=== PATIENT | male | born 1995 | race Caucasian/White ===

== ENCOUNTER 2023-07-12 13:31 | Emergency (ER) | payer SELFPAY ==
[~2023-07-12] VITALS: Ht 172.7 cm; Wt 73.0 kg
[2023-07-12 13:34] VITALS: O2SAT 98
[2023-07-12] MEDS ORDERED: LORAZEPAM 2MG/ML CPJ IM ONE (14:15)
[2023-07-12 15:13] VITALS: BP 144/78; PULSE 105; RESP 24; TEMP 98
[2023-07-12] MEDS ORDERED: NALO4SPR BOTHNSTRLS (15:21)
== END 2023-07-12 15:55 | disposition home or self-care (01) ==
LOC: ER 14:48
DX: T40.2X1A Poisoning by other opioids, accidental (unintentional), initial encounter (principal); X58.XXXA Exposure to other specified factors, initial encounter
CPT/HCPCS: 99283; 93005; 96372; J2060

== ENCOUNTER 2023-07-28 07:29 | Inpatient (IN) | payer SELFPAY ==
[2023-07-28] VITALS (20 sets, daily range): BP systolic 119–154; BP diastolic 78–105; PULSE 45–101; RESP 14–19; TEMP 97–98
[~2023-07-28] VITALS: Ht 167.6 cm; Wt 72.6 kg
[~2023-07-28 07:29] MED LIST: NALO4SPR BOTHNSTRLS
[2023-07-28] MEDS ORDERED: NALOXONE HCL 0.4 MG/ML 1ML VIAL IV ONE (08:15)
[2023-07-28] MEDS ORDERED: NALOXONE HCL 1 MG/ML 2ML VIAL IV ONE (08:30)
[2023-07-28] MEDS ORDERED: KETAMINE HCL 50 MG/ML 10ML IV ONE (08:45)
[2023-07-28] MEDS ORDERED: ROCURONIUM BROMIDE 10MG/ML VIAL 5ML IV ONE (08:45)
[2023-07-28] MEDS ORDERED: DEXMEDETOMIDINE 400 MCG/100 ML 100 ML IV STA (08:55)
[2023-07-28] MEDS ORDERED: SUCCINYLCHOLINE CHLORIDE 200MG/10ML IV ONE (09:00)
[2023-07-28] MEDS ORDERED: DEXMEDETOMIDINE 400 MCG/100 ML 100 ML IV ONE (09:00)
[2023-07-28 09:09] LABS: BASOPHILS % 0.2 % (0.0-2.0); EOSINOPHILS % 0.5 % (0.0-5.0); HEMATOCRIT. 38.9 % (42.0-52.0); HEMOGLOBIN. 13.4 g/dL (14.0-18.0); LYMPHOCYTES % 27.9 % (20.0-50.0); MEAN CORPUSCULAR HEMOGLOBIN 28.7 pg (28.0-32.0); MEAN CORPUSCULAR HGB CONC 34.4 g/dL (31.0-37.0); MEAN CORPUSCULAR VOLUME 83.6 fL (80.0-94.0); MONOCYTES % 7.9 % (2.0-8.0); NEUTROPHILS % 63.5 % (40.0-76.0); PLATELET 277 x1000/uL (130-400); RED BLOOD CELL COUNT 4.65 mill/uL (4.7-6.1); RED CELL DISTRIBUTION WIDTH 14.1 % (11.6-14.6); WHITE BLOOD COUNT 6.7 x1000/uL (4.5-11.0)
[2023-07-28 09:46] LABS: BG BASE EXCESS 2.5 mmol/L (-2.0-2.0); BG CARBOXYHEMOGLOBIN 0.5 % (0.5-1.5); BG DEOXYHEMOGLOBIN 0.3 % (0.0-5.0); BG HCO3 ACT 28.1 mmol/L (22.0-26.0); BG METHEMOGLOBIN 0.4 % (0.0-1.5); BG OXYGEN SATURATION 99.7 % (92.0-98.5); BG OXYHEMOGLOBIN 98.8 % (94.0-97.0); BG PCO2 46.9 mmHg (35.0-45.0); BG PH 7.395 (7.350-7.450); BG PO2 > 602.7 mmHg (75.0-100.0); BG SAMPLE SITE ALINE; BG TOTAL HEMOGLOBIN 14.1 g/dL (12.0-18.0); BG VENT MODE VENT - AC
[2023-07-28 09:56] LABS: CHLORIDE 97 mEq/L (98-107); INDEX HEMOLYSI 1 (1-3); INDEX ICTERIC 1 (1-4); INDEX LIPEMIC 1 (1-3); POTASSIUM 3.5 mEq/L (3.5-5.1); SODIUM 133 mEq/L (136-145)
[2023-07-28 10:04] LABS: ACETAMINOPHEN <2 ug/mL ug/mL (10-30); ALANINE AMINOTRANSFERASE 63 IU/L (13-61); ALBUMIN 3.7 g/dL (3.4-5.0); ASPARTATE AMINOTRANSFERASE 50 IU/L (15-37); BILIRUBIN TOTAL 0.5 mg/dL (0.1-1.0); CALCIUM 9.1 mg/dL (8.5-10.1); CARBON DIOXIDE 25 mEq/L (21-32); CREATININE 0.8 mg/dL (0.6-1.3); ETHANOL BLOOD < 10 mg/dL (-10); GLUCOSE 134 mg/dL (70-105); PROTEIN TOTAL 7.4 g/dL (6.0-8.3); UREA NITROGEN BLOOD 15 mg/dL (7-21)
[2023-07-28 10:32] LABS: *AMPHETAMINES SCREEN URINE PRESUMTIVE POSITIVE (NEGATIVE); *BARBITURATES SCREEN URINE NEGATIVE (NEGATIVE); *BENZODIAZEPINES SCREEN URINE NEGATIVE (NEGATIVE); *COCAINE SCREEN URINE NEGATIVE (NEGATIVE); CANNABINOID URINE SCREEN PRESUMTIVE POSITIVE (NEGATIVE); ECSTASY MDMA SCREEN URINE CONF.TEST INDICATED (NEGATIVE); METHADONE URINE SCREEN NEGATIVE (NEGATIVE); OPIATES URINE SCREEN NEGATIVE (NEGATIVE); PHENCYCLIDINE URINE SCREEN NEGATIVE (NEGATIVE)
[2023-07-28] MEDS ORDERED: HYDRALAZINE 10 MG in SODIUM CHLORIDE 0.9% 49.5 ML IV PRN (11:30)
[2023-07-28] MEDS: DEXT 5%/0.9% NACL 1,000 ML IV SCH (11:30)
[2023-07-28] MEDS ORDERED: PIPERACILLIN/TAZ 3.375G PREMIX 50 ML IV NR (12:00)
[2023-07-28 12:25] LABS: PHOSPHORUS 2.7 mg/dL (2.5-4.9)
[2023-07-28] MEDS ORDERED: IPRATROPIUM/ALBUTEROL 0.5-3(2.5)MG/3ML NEB HHN PRN (12:30)
[2023-07-28] MEDS ORDERED: PROPOFOL 10MG/ML 100ML 100 ML IV PRN (12:30)
[2023-07-28] MEDS ORDERED: DEXTROSE 50% WATER 50ML SYRINGE IV PRN (12:45)
[2023-07-28] MEDS ORDERED: FOLIC ACID 1 MG in SODIUM CHLORIDE 0.9% 500 ML IV NR (13:00)
[2023-07-28] MEDS: BLOOD SUGAR DIAGNOSTIC STRIP TEST SCH ×3 (13:00→20:24)
[2023-07-28] MEDS ORDERED: VANCOMYCIN 1.5GM/250ML IVPB 250 ML IV NR (13:00)
[2023-07-28] MEDS ORDERED: THIAMINE HCL 200 MG in SODIUM CHLORIDE 0.9% 98 ML IV SCH (14:00)
[2023-07-28] MEDS ORDERED: PIPERACILLIN/TAZOBACTAM 3.375G in DEXT 5% WATER 50ML IV NR (15:00)
[2023-07-28] MEDS: PANTOPRAZOLE SODIUM 40 MG/VIAL IV SCH (15:06)
[2023-07-28] MEDS ORDERED: LORAZEPAM 2MG/ML CPJ IV NR (15:51)
[2023-07-28] MEDS ORDERED: VANCOMYCIN 1500MG in DEXTROSE 5% WATER 250ML IV NR (16:00)
[2023-07-28 18:08] LABS: INDEX HEMOLYSI 1 (1-3)
[2023-07-28 18:16] LABS: CREATINE KINASE 429 IU/L (39-308); TROPONIN I HIGH SENSITIVITY 8 ng/L (<78)
[2023-07-28 19:12] LABS: HEPATITIS B SURFACE ANTIGEN NEGATIVE
[2023-07-28 19:41] LABS: HEPATITIS B CORE AB IGM NEGATIVE
[2023-07-28] MEDS: LORAZEPAM 2MG/ML CPJ IV PRN ×2 (20:01→22:44)
[2023-07-28 20:40] LABS: HEPATITIS C VIR.AB > 11.00 INDEXVAL (0.00-0.80)
[2023-07-28] MEDS: IPRATROPIUM/ALBUTEROL 0.5-3(2.5)MG/3ML NEB HHN SCH (20:40)
[2023-07-28] MEDS ORDERED: ENOXAPARIN 40MG/0.4ML SYR SUBCUT SCH (21:00)
[2023-07-28] MEDS ORDERED: PIPERACILLIN/TAZOBACTAM 3.375 G in DEXTROSE 5% WATER 50 ML IV SCH (22:00)
[2023-07-28 22:21] LABS: HEPATITIS A AB IGM NEGATIVE (NEGATIVE)
[2023-07-28] MEDS: PIPERACILLIN/TAZOBACTAM 3.375G in DEXT 5% WATER 50ML IV SCH (22:30)
[2023-07-28] MEDS: PROPOFOL 10MG/ML 100ML 100 ML IV PRN (23:24)
[2023-07-28 23:29] LABS: CREATINE KINASE MB FRACTION 7.7 ng/mL (0.5-3.6)
[2023-07-29] VITALS (23 sets, daily range): BP systolic 109–146; BP diastolic 59–94; PULSE 73–103; RESP 14–21; TEMP 96.2–99.5; O2SAT 100
[2023-07-29] MEDS: VANCOMYCIN 1G PREMIX 200 ML IV SCH ×2 (00:29→08:22)
[2023-07-29] MEDS: DEXT 5%/0.9% NACL 1,000 ML IV SCH ×2 (01:31→08:27)
[2023-07-29] MEDS: IPRATROPIUM/ALBUTEROL 0.5-3(2.5)MG/3ML NEB HHN SCH ×2 (02:05→08:35)
[2023-07-29 04:54] LABS: BASOPHILS % 0.1 % (0.0-2.0); EOSINOPHILS % 0.6 % (0.0-5.0); HEMATOCRIT. 39.8 % (42.0-52.0); HEMOGLOBIN. 13.5 g/dL (14.0-18.0); LYMPHOCYTES % 22.7 % (20.0-50.0); MEAN CORPUSCULAR HEMOGLOBIN 28.7 pg (28.0-32.0); MEAN CORPUSCULAR VOLUME 84.5 fL (80.0-94.0); MEAN PLATELET VOLUME 8.1 fl (7.4-10.4); MONOCYTES % 8.1 % (2.0-8.0); NEUTROPHILS % 68.5 % (40.0-76.0); PLATELET 257 x1000/uL (130-400); RED BLOOD CELL COUNT 4.72 mill/uL (4.7-6.1); RED CELL DISTRIBUTION WIDTH 14.8 % (11.6-14.6); WHITE BLOOD COUNT 7.1 x1000/uL (4.5-11.0)
[2023-07-29 05:05] LABS: CHLORIDE 102 mEq/L (98-107); INDEX HEMOLYSI 2 (1-3); INDEX ICTERIC 1 (1-4); INDEX LIPEMIC 1 (1-3); POTASSIUM 3.1 mEq/L (3.5-5.1); SODIUM 138 mEq/L (136-145)
[2023-07-29] MEDS: PROPOFOL 10MG/ML 100ML 100 ML IV PRN ×2 (05:12→09:05)
[2023-07-29 05:19] LABS: ALANINE AMINOTRANSFERASE 52 IU/L (13-61); ALBUMIN 3.1 g/dL (3.4-5.0); ASPARTATE AMINOTRANSFERASE 33 IU/L (15-37); BILIRUBIN TOTAL 0.5 mg/dL (0.1-1.0); CALCIUM 8.3 mg/dL (8.5-10.1); CARBON DIOXIDE 28 mEq/L (21-32); CHOLESTEROL 150 mg/dL (<200); CREATININE 0.8 mg/dL (0.6-1.3); GLUCOSE 111 mg/dL (70-105); HDL CHOLESTEROL 64 mg/dL (40-59); LDL CHOLESTEROL 57 mg/dL (5-100); PROTEIN TOTAL 6.8 g/dL (6.0-8.3); T4 FREE 1.37 ng/dL (0.76-1.46); TRIGLYCERIDE 91 mg/dL (0-150); UREA NITROGEN BLOOD 7 mg/dL (7-21)
[2023-07-29] MEDS: BLOOD SUGAR DIAGNOSTIC STRIP TEST SCH ×2 (05:42→11:30)
[2023-07-29] MEDS: PIPERACILLIN/TAZOBACTAM 3.375G in DEXT 5% WATER 50ML IV SCH ×2 (05:55→13:31)
[2023-07-29] MEDS: PANTOPRAZOLE SODIUM 40 MG/VIAL IV SCH (08:44)
[2023-07-29 09:25] LABS: BG BASE EXCESS 2.9 mmol/L (-2.0-2.0); BG CARBOXYHEMOGLOBIN 0.3 % (0.5-1.5); BG DEOXYHEMOGLOBIN 0.7 % (0.0-5.0); BG FRACTION INSPIRED OXYGEN 40; BG HCO3 ACT 26.6 mmol/L (22.0-26.0); BG METHEMOGLOBIN 0.2 % (0.0-1.5); BG OXYGEN SATURATION 99.3 % (92.0-98.5); BG OXYHEMOGLOBIN 98.8 % (94.0-97.0); BG PCO2 37.8 mmHg (35.0-45.0); BG PH 7.466 (7.350-7.450); BG PO2 210.1 mmHg (75.0-100.0); BG SAMPLE SITE RIGHT RADIAL; BG TOTAL HEMOGLOBIN 13.4 g/dL (12.0-18.0); BG VENT MODE VENT - AC
[2023-07-29] MEDS ORDERED: POTASSIUM CHLORIDE 20MEQ/PACKET PO NR (11:45)
== END 2023-07-29 15:30 | disposition left against medical advice (07) | DRG 812 ==
LOC: ER 07:29 → MICUSO 10:16 → EDBEDREQTM 10:17 → EDBEDREQ 10:17
PROVIDERS: ADMIT Internal Medicine; ATTEND Internal Medicine
PROC: 5A1945Z Respiratory Ventilation, 24-96 Consecutive Hours (ICD-10-PCS; principal; 2023-07-28)
PROC: 0BH17EZ Insertion of Endotracheal Airway into Trachea, Via Natural or Artificial Opening (ICD-10-PCS; 2023-07-28)
PROC: 5A1935Z Respiratory Ventilation, Less than 24 Consecutive Hours (ICD-10-PCS; 2023-07-29)
DX: T50.901A Poisoning by unspecified drugs, medicaments and biological substances, accidental (unintentional), initial encounter (principal); J96.02 Acute respiratory failure with hypercapnia; G92.8 Other toxic encephalopathy; E87.1 Hypo-osmolality and hyponatremia; B19.20 Unspecified viral hepatitis C without hepatic coma; D64.9 Anemia, unspecified; Z53.29 Procedure and treatment not carried out because of patient's decision for other reasons; L08.0 Pyoderma; L60.0 Ingrowing nail; R73.9 Hyperglycemia, unspecified; R74.01 Elevation of levels of liver transaminase levels; F11.10 Opioid abuse, uncomplicated; Y92.89 Other specified places as the place of occurrence of the external cause
CPT/HCPCS: 36415; 36600; 71045; 80053; 80061; 80305; 80307; 80320; 80329; 82375; 82550; 82553; 82805; 82962; 83036; 83605; 83735; 84100; 84145; 84439; 84443; 84484; 85025; 85379; 86695; 86696; 86705; 86709; 86803; 87340; 87389; 93005; 99291; C9113; J1650; J2060; J2310; J2543; J2704; J3370; J3411; J3490; J7040; J7050; J7060; Q9957; A4315; G0480

== ENCOUNTER 2025-10-01 00:13 | Emergency (ER) | payer MEDICAID ==
[~2025-10-01] VITALS: Ht 170.2 cm; Wt 73.0 kg
[2025-10-01 00:29] VITALS: BP 135/88; PULSE 98; RESP 18; TEMP 98.7; O2SAT 98
[2025-10-01] MEDS: IBUPROFEN 600MG TABLET PO ONE (01:35)
== END 2025-10-01 01:38 | disposition home or self-care (01) ==
LOC: ER 00:13
DX: R62.7 Adult failure to thrive (principal); Z59.00 Homelessness unspecified; Z53.29 Procedure and treatment not carried out because of patient's decision for other reasons
CPT/HCPCS: 99283

== ENCOUNTER 2025-10-18 14:19 | Emergency (ER) | payer MEDICAID ==
[~2025-10-18] VITALS: Ht 177.8 cm; Wt 75.0 kg
[2025-10-18 14:25] VITALS: BP 132/84; PULSE 96; RESP 16; TEMP 98; O2SAT 100
== END 2025-10-18 16:41 | disposition left against medical advice (07) ==
LOC: ER 14:19
DX: M79.605 Pain in left leg (principal); F20.9 Schizophrenia, unspecified
CPT/HCPCS: 99281